=== PATIENT | male | born 1990 | race American Indian/Alaskan Native ===

== ENCOUNTER 2018-04-26 20:47 | Emergency (ER) | payer OTHER ==
[2018-04-26 21:10] VITALS: PULSE 64; RESP 18; TEMP 97.9
[2018-04-26] MEDS ORDERED: Oxycodone/Acetaminophen 5/325 mg Tab PO STA (21:11)
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
[2018-04-27 00:29] VITALS: BP 105/63; O2SAT 100
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
== END 2018-04-27 00:20 | disposition home or self-care (01) ==
LOC: ED 20:47 → MERGE 20:47 → ED 04-27 00:20
DX: S09.90XA Unspecified injury of head, initial encounter (principal); S80.02XA Contusion of left knee, initial encounter; V13.4XXA Pedal cycle driver injured in collision with car, pick-up truck or van in traffic accident, initial encounter; Y92.410 Unspecified street and highway as the place of occurrence of the external cause